=== PATIENT | male | born 1960 | race Two or more races ===

== ENCOUNTER 2021-06-26 17:59 | Emergency (ER) | payer OTHER ==
[~2021-06-26] VITALS: Ht 165.1 cm; Wt 73.5 kg
[2021-06-26 18:12] VITALS: BP 162/87
[2021-06-26] MEDS ORDERED: ACETAMINOPHEN ES 500 MG TABLET PO ONE (18:30)
[2021-06-26] MEDS ORDERED: ACETAMINOPHEN ES 500 MG TABLET ONE (18:30)
[2021-06-26] MEDS ORDERED: IBUP-1955 PO (19:34)
[2021-06-26] MEDS ORDERED: TRAM50TA2 PO (19:34)
--- NOTE | 2021-06-26 19:39 | NUR ---
Patient discharged to home in stable condition. Written and verbal after care instructions given. Patient verbalizes understanding of instruction. rx given
--- NOTE | 2021-06-26 19:46 | NUR ---
pt was provided a arm sling per
== END 2021-06-26 19:46 | disposition home or self-care (01) ==
LOC: ER 18:04
DX: M25.512 Pain in left shoulder (principal); Z79.899 Other long term (current) drug therapy; W18.39XA Other fall on same level, initial encounter; Y93.89 Activity, other specified; Y92.89 Other specified places as the place of occurrence of the external cause; Y99.8 Other external cause status
CPT/HCPCS: 73030-TC